=== PATIENT | male | born 1995 | race Caucasian/White ===

== ENCOUNTER 2022-04-07 03:42 | Inpatient (IN) | payer MEDICAID, OTHER ==
[~2022-04-07] VITALS: Ht 185.4 cm; Wt 59.0 kg
[~2022-04-07 03:42] MED LIST: FLUO20CA30 PO
[2022-04-07 04:42] LABS: BASOPHILS % (AUTO) 0.7 % (0.0-2.0); EOSINOPHILS % (AUTO) 0.4 % (1.0-6.0); HEMATOCRIT 48.7 % (41-53); HEMOGLOBIN 16.7 g/dL (13.5-17.5); LYMPHOCYTES # (AUTO) 2.5 K/uL (1.0-4.8); LYMPHOCYTES % (AUTO) 28.2 % (22.0-44.0); MEAN CORPUSCULAR HEMOGLOBIN 31.9 pg (26.0-34.0); MEAN CORPUSCULAR HGB CONC 34.3 G/dL (31.0-37.0); MEAN CORPUSCULAR VOLUME 93 fL (80-100); MONOCYTES # (AUTO) 0.5 K/uL (0.1-1.0); MONOCYTES % (AUTO) 5.9 % (2.0-9.0); NEUTROPHILS # (AUTO) 5.7 K/uL (1.8-7.7); NEUTROPHILS % (AUTO) 64.8 % (40.0-70.0); PLATELET COUNT (AUTO) 291 K/uL (150-450); RED BLOOD CELL COUNT(AUTO) 5.24 MIL/uL (4.50-5.90); RED CELL DISTRIBUTION WIDTH 13.3 % (11.5-14.5)
[2022-04-07 04:48] LABS: ANION GAP 11 mmol/L (8-16); CALCIUM, TOTAL 9.7 mg/dL (8.8-10.5); CARBON DIOXIDE 28 mmol/L (22-29); CHLORIDE 100 mmol/L (98-107); CREATININE 1.26 mg/dL (0.60-1.30); GLUCOSE,RANDOM 91 mg/dL (70-110); POTASSIUM 3.7 mmol/L (3.5-5.1); SODIUM SERUM 139 mmol/L (136-145); UREA NITROGEN, BLOOD 13 mg/dL (7-18)
[2022-04-07 04:53] LABS: ALANINE AMINOTRANSFERASE 13 U/L (12-78); ALBUMIN 5.5 g/dL (3.4-5.0); ALKALINE PHOSPHATASE 39 U/L (46-116); ASPARTATE AMINOTRANSFERASE 17 U/L (15-37); BILIRUBIN,TOTAL 0.6 mg/dL (0.1-1.0); TOTAL PROTEIN, SERUM 9.4 g/dL (6.4-8.2)
[2022-04-07 04:57] LABS: GLOMERULAR FILTR. RATE CALC > 60 mL/min (>60)
[2022-04-07 05:30] LABS: COVID AG,FIA SOURCE NASAL SWAB
[2022-04-07] MEDS ORDERED: MELATONIN 5 MG TABLET PO ONE (06:00)
[2022-04-07] MEDS: HALOPERIDOL 5 MG TABLET PO PRN (06:06)
[2022-04-07] MEDS: LORazepam 2 MG TABLET PO PRN (06:06)
[2022-04-07 06:14] LABS: APPEARANCE,URINE TURBID (CLEAR); BILIRUBIN,URINE NEGATIVE (NEGATIVE); GLUCOSE, URINE (UA) NEGATIVE (NEGATIVE); KETONES,URINE 40-60 mg/dL (NEGATIVE); LEUKOCYTE ESTERASE ,URINE NEGATIVE (NEGATIVE); NITRATE,URINE NEGATIVE (NEGATIVE); OCCULT BLOOD,URINE NEGATIVE (NEGATIVE); PH,URINE 6.5 (5.0-8.0); PROTEIN,URINE 30-70 mg/dL (NEGATIVE); SPECIFIC GRAVITIY, URINE 1.029 (1.003-1.030); UROBILINOGEN,URINE <=1.0 mg/dL (<=1.0)
[2022-04-07 06:20] LABS: AMPHET/METH SCREEN,URINE NEGATIVE (NEGATIVE); BARBITURATE SCREEN, URINE NEGATIVE (NEGATIVE); BENZODIAZEPINES SCREEN,URINE NEGATIVE (NEGATIVE); CANNABINOID SCREEN,URINE POSITIVE (NEGATIVE); COCAINE SCREEN,URINE NEGATIVE (NEGATIVE); METHADONE SCREEN, URINE NEGATIVE (NEGATIVE); OPIATE SCREEN,URINE NEGATIVE (NEGATIVE)
[2022-04-07 06:25] LABS: PHENCYCLIDINE SCREEN,URINE NEGATIVE (NEGATIVE)
[2022-04-07 08:32] VITALS: BP 117/67
[2022-04-07] MEDS ORDERED: INFLUENZA VIRUS VACCINE QVS 2022-23 (6MO+)/PF 60 MCG/0.5 ML SYRINGE IM. ONE (12:00)
[2022-04-07] MEDS: NICOTINE 21 MG/24 HOUR PATCH TD SCH (12:41)
[2022-04-07] MEDS ORDERED: ACETAMINOPHEN 325 MG TABLET PO PRN (20:30)
[2022-04-07] MEDS ORDERED: BENZOCAINE/MENTHOL LOZENGE PO PRN (20:30)
[2022-04-07] MEDS ORDERED: CloNIDine HCL 0.1 MG TABLET PO PRN (20:30)
[2022-04-07] MEDS: ZOLPIDEM TARTRATE 10 MG TABLET PO PRN (20:30)
[2022-04-07] MEDS ORDERED: BACITRACIN 28 GM OINTMENT TP PRN (20:30)
[2022-04-07] MEDS ORDERED: MAG HYDROX/AL HYDROX/SIMETH ES 30 ML SUSPENSION UDCUP PO PRN (20:30)
[2022-04-07] MEDS ORDERED: OMEPRAZOLE 20 MG CAPSULE PO PRN (20:30)
[2022-04-07] MEDS ORDERED: IBUPROFEN 600 MG TABLET PO PRN (20:30)
[2022-04-07] MEDS ORDERED: DOCUSATE SODIUM 100 MG CAPSULE PO PRN (20:30)
[2022-04-07] MEDS ORDERED: ALBUTEROL SULFATE HFA 90 MCG/PUFF 8 GM INHALER IH PRN (20:30)
[2022-04-07] MEDS ORDERED: LOPERAMIDE HCL 2 MG CAPSULE PO PRN (20:30)
[2022-04-07] MEDS ORDERED: ONDANSETRON HCL 4 MG TABLET PO PRN (20:30)
[2022-04-07] MEDS ORDERED: PETROLATUM,WHITE 28 GM JELLY TP PRN (20:30)
[2022-04-07] MEDS ORDERED: MAGNESIUM HYDROXIDE SUSPENSION 30 ML UDCUP PO PRN (20:30)
[2022-04-07 20:45] VITALS: BP 119/69
[2022-04-08] MEDS: HALOPERIDOL 5 MG TABLET PO PRN (03:57)
[2022-04-08] MEDS: LORazepam 2 MG TABLET PO PRN ×2 (03:57→11:14)
[2022-04-08 08:19] VITALS: BP 112/60
[2022-04-08] MEDS: NICOTINE 21 MG/24 HOUR PATCH TD SCH (09:06)
[2022-04-08] MEDS: MULTIVITAMINS WITH MINERALS, THERAPEUTIC TABLET PO SCH (17:12)
[2022-04-08] MEDS: FOLIC ACID 1 MG TABLET PO SCH (17:13)
[2022-04-08] MEDS: THIAMINE 100 MG TABLET PO SCH (17:13)
[2022-04-08 20:01] VITALS: BP 104/60
[2022-04-08] MEDS: OLANZapine 5 MG TABLET PO SCH (20:04)
[2022-04-08] MEDS: ZOLPIDEM TARTRATE 10 MG TABLET PO PRN (20:04)
[2022-04-09] MEDS: LORazepam 2 MG TABLET PO PRN (03:58)
[2022-04-09 08:11] LABS: MAGNESIUM 2.1 mg/dL (1.80-2.40); PHOSPHORUS 4.5 mg/dL (2.5-4.9)
[2022-04-09 08:23] VITALS: BP 106/61
[2022-04-09] MEDS: MULTIVITAMINS WITH MINERALS, THERAPEUTIC TABLET PO SCH (09:21)
[2022-04-09] MEDS: THIAMINE 100 MG TABLET PO SCH (09:21)
[2022-04-09] MEDS: FOLIC ACID 1 MG TABLET PO SCH (09:21)
[2022-04-09] MEDS: NICOTINE 21 MG/24 HOUR PATCH TD SCH (09:21)
[2022-04-09] MEDS: OLANZapine 5 MG TABLET PO SCH (20:24)
[2022-04-09] MEDS: ZOLPIDEM TARTRATE 10 MG TABLET PO PRN (20:24)
[2022-04-09 21:28] VITALS: BP 110/68
[2022-04-10 02:27] VITALS: BP 106/72
[2022-04-10] MEDS: LORazepam 2 MG TABLET PO PRN (02:32)
[2022-04-10] MEDS: THIAMINE 100 MG TABLET PO SCH (08:57)
[2022-04-10] MEDS: MULTIVITAMINS WITH MINERALS, THERAPEUTIC TABLET PO SCH (08:57)
[2022-04-10] MEDS: FOLIC ACID 1 MG TABLET PO SCH (08:58)
[2022-04-10] MEDS: NICOTINE 21 MG/24 HOUR PATCH TD SCH (08:58)
[2022-04-10 09:11] VITALS: BP 93/55
[2022-04-10] MEDS ORDERED: OLAN5TAB52 PO (11:11)
[2022-04-11 19:06] LABS: HEPATITIS C AB (EIA) <0.1 s/co ratio (0.0-0.9)
== END 2022-04-10 14:53 | disposition home or self-care (01) | DRG 750 ==
LOC: EMS 03:43 → B2S 05:00
PROVIDERS: ADMIT Psychiatry & Neurology Psychiatry; ATTEND Psychiatry & Neurology Psychiatry
DX: F25.9 Schizoaffective disorder, unspecified (principal); R45.851 Suicidal ideations; F41.9 Anxiety disorder, unspecified; F31.9 Bipolar disorder, unspecified; G47.00 Insomnia, unspecified; K59.00 Constipation, unspecified; F17.210 Nicotine dependence, cigarettes, uncomplicated; Z91.51 Personal history of suicidal behavior; Z79.899 Other long term (current) drug therapy; Z88.8 Allergy status to other drugs, medicaments and biological substances
CPT/HCPCS: 80053; 80307; 81003; 83735; 84100; 85025; 86803; 87340; 90686; 99285; G0480

== ENCOUNTER 2023-01-06 02:39 | Inpatient (IN) | payer MEDICAID ==
[~2023-01-06] VITALS: Ht 185.4 cm; Wt 69.4 kg
[~2023-01-06 02:39] MED LIST changes: -FLUO20CA30 PO; +OLAN5TAB52 PO
[2023-01-06 03:08] LABS: BASOPHILS % (AUTO) 0.3 % (0.0-2.0); EOSINOPHILS % (AUTO) 0.2 % (1.0-6.0); HEMATOCRIT 43.8 % (41-53); HEMOGLOBIN 14.9 g/dL (13.5-17.5); LYMPHOCYTES # (AUTO) 1.7 K/uL (1.0-4.8); LYMPHOCYTES % (AUTO) 13.8 % (22.0-44.0); MEAN CORPUSCULAR HEMOGLOBIN 31.4 pg (26.0-34.0); MEAN CORPUSCULAR HGB CONC 34.1 G/dL (31.0-37.0); MEAN CORPUSCULAR VOLUME 92 fL (80-100); MONOCYTES # (AUTO) 0.6 K/uL (0.1-1.0); MONOCYTES % (AUTO) 5.2 % (2.0-9.0); NEUTROPHILS # (AUTO) 9.7 K/uL (1.8-7.7); NEUTROPHILS % (AUTO) 80.5 % (40.0-70.0); PLATELET COUNT (AUTO) 278 K/uL (150-450); RED BLOOD CELL COUNT(AUTO) 4.75 MIL/uL (4.50-5.90); RED CELL DISTRIBUTION WIDTH 12.8 % (11.5-14.5); WHITE BLOOD COUNT (AUTO) 12.1 K/uL (4.5-11.0)
[2023-01-06 03:14] LABS: ALCOHOL, URINE DRUG SCREEN NEGATIVE (NEGATIVE); AMPHET/METH SCREEN,URINE NEGATIVE (NEGATIVE); BARBITURATE SCREEN, URINE NEGATIVE (NEGATIVE); BENZODIAZEPINES SCREEN,URINE NEGATIVE (NEGATIVE); CANNABINOID SCREEN,URINE POSITIVE (NEGATIVE); COCAINE SCREEN,URINE NEGATIVE (NEGATIVE); METHADONE SCREEN, URINE NEGATIVE (NEGATIVE); OPIATE SCREEN,URINE NEGATIVE (NEGATIVE); PHENCYCLIDINE SCREEN,URINE NEGATIVE (NEGATIVE)
[2023-01-06 03:20] LABS: ANION GAP 9 mmol/L (8-16); CALCIUM, TOTAL 8.7 mg/dL (8.8-10.5); CARBON DIOXIDE 27 mmol/L (22-29); CHLORIDE 102 mmol/L (98-107); CREATININE 1.21 mg/dL (0.60-1.30); GLOMERULAR FILTR. RATE CALC > 60 mL/min (>60); GLUCOSE,RANDOM 101 mg/dL (70-110); POTASSIUM 3.8 mmol/L (3.5-5.1); SODIUM SERUM 138 mmol/L (136-145); UREA NITROGEN, BLOOD 13 mg/dL (7-18)
[2023-01-06 03:26] LABS: ALANINE AMINOTRANSFERASE 20 U/L (12-78); ALBUMIN 4.5 g/dL (3.4-5.0); ALCOHOL, BLOOD (SERUM) < 3 mg/dL (0-10); ALKALINE PHOSPHATASE 33 U/L (46-116); ASPARTATE AMINOTRANSFERASE 16 U/L (15-37); BILIRUBIN,TOTAL 0.5 mg/dL (0.1-1.0); TOTAL PROTEIN, SERUM 8.1 g/dL (6.4-8.2)
[2023-01-06 03:57] LABS: COVID AG,FIA SOURCE NASAL SWAB
[2023-01-06 04:16] LABS: SARS-COV2 (COVID) ANTIGEN,FIA Negative (Negative)
[2023-01-06] MEDS ORDERED: LORazepam 2 MG TABLET PO ONE (04:30)
[2023-01-06] MEDS ORDERED: BACITRACIN 0.9 GM PACKET OINTMENT TP ONE (04:40)
[2023-01-06] MEDS ORDERED: HALOPERIDOL 5 MG TABLET PO PRN (07:45)
[2023-01-06] MEDS ORDERED: ZOLPIDEM TARTRATE 10 MG TABLET PO PRN (07:45)
[2023-01-06 12:15] VITALS: BP 104/54; PULSE 92; RESP 18; TEMP 97.6; O2SAT 97
[2023-01-06] MEDS ORDERED: INFLUENZA VIRUS VACCINE QVS 2023-24 (6MO+)/PF 60 MCG/0.5 ML SYRINGE IM. ONE (12:15)
[2023-01-06] MEDS ORDERED: TRAZ-283 PO (12:52)
[2023-01-06] MEDS ORDERED: LURA40TA4 PO (12:52)
[2023-01-06] MEDS: LURASIDONE HCL 40 MG TABLET PO SCH (17:00)
[2023-01-06 20:29] VITALS: BP 117/64; PULSE 100; RESP 18; TEMP 97.5; O2SAT 98
[2023-01-06] MEDS: TraZODone HCL 150 MG TABLET PO SCH (21:35)
[2023-01-06] MEDS: LORazepam 2 MG TABLET PO PRN (21:37)
[2023-01-07 08:19] VITALS: BP 100/60; PULSE 75; RESP 18; TEMP 98; O2SAT 99
[2023-01-07] MEDS ORDERED: LOPERAMIDE HCL 2 MG CAPSULE PO PRN (14:30)
[2023-01-07] MEDS ORDERED: MAG HYDROX/ALUMINUM HYD/SIMETH ES 30 ML SUSPENSION UDCUP PO PRN (14:30)
[2023-01-07] MEDS ORDERED: MAGNESIUM HYDROXIDE SUSPENSION 30 ML UDCUP PO PRN (14:30)
[2023-01-07] MEDS ORDERED: CloNIDine HCL 0.1 MG TABLET PO PRN (14:30)
[2023-01-07] MEDS ORDERED: IBUPROFEN 400 MG TABLET PO PRN (14:30)
[2023-01-07] MEDS ORDERED: GuaiFENesin/D-METHORPHAN [SUGAR-FREE] 200-20MG/10 ML SYRUP UDCUP PO PRN (14:30)
[2023-01-07] MEDS ORDERED: ACETAMINOPHEN 325 MG TABLET PO PRN (14:30)
[2023-01-07] MEDS ORDERED: PETROLATUM,WHITE 28 GM JELLY TP PRN (14:30)
[2023-01-07] MEDS ORDERED: ALBUTEROL SULFATE HFA 90 MCG/PUFF 8 GM INHALER IH PRN (14:30)
[2023-01-07] MEDS ORDERED: NICOTINE 14 MG/24 HOUR PATCH TD PRN (14:30)
[2023-01-07] MEDS ORDERED: DOCUSATE SODIUM 100 MG CAPSULE PO PRN (14:30)
[2023-01-07] MEDS ORDERED: ONDANSETRON HCL 4 MG TABLET PO PRN (14:30)
[2023-01-07] MEDS: LURASIDONE HCL 40 MG TABLET PO SCH (16:05)
[2023-01-07] MEDS: TraZODone HCL 150 MG TABLET PO SCH (20:31)
[2023-01-07 20:34] VITALS: BP 123/88; PULSE 100; RESP 17; TEMP 97.6; O2SAT 99
[2023-01-08 08:18] LABS: CHOL/HDL RATIO 2.3 (4.2-7.3); THYROID STIMULATING HORMONE 1.37 uIU/mL (0.36-3.74)
[2023-01-08 08:19] VITALS: BP 100/60; PULSE 86; RESP 17; TEMP 97; O2SAT 99
[2023-01-08 08:21] LABS: HEMOGLOBIN A1C 5.1 % (3.8-5.6)
[2023-01-08] MEDS: LURASIDONE HCL 40 MG TABLET PO SCH (16:49)
[2023-01-08 20:10] VITALS: BP 106/70; PULSE 88; RESP 18; TEMP 97.6; O2SAT 96
[2023-01-08] MEDS: TraZODone HCL 150 MG TABLET PO SCH (20:35)
[2023-01-09] MEDS: LORazepam 2 MG TABLET PO PRN (03:58)
[2023-01-09 08:45] VITALS: BP 100/61; PULSE 100; RESP 18; TEMP 97.6; O2SAT 99
[2023-01-09 09:30] LABS: APPEARANCE,URINE CLEAR (CLEAR); BILIRUBIN,URINE NEGATIVE (NEGATIVE); COLOR,URINE YELLOW (YELLOW); GLUCOSE, URINE (UA) NEGATIVE (NEGATIVE); KETONES,URINE NEGATIVE (NEGATIVE); LEUKOCYTE ESTERASE ,URINE NEGATIVE (NEGATIVE); NITRATE,URINE NEGATIVE (NEGATIVE); OCCULT BLOOD,URINE NEGATIVE (NEGATIVE); PH,URINE 6.5 (5.0-8.0); PH,URINE DRUG SCREEN 6.5 (5.0-8.0); PROTEIN,URINE TRACE mg/dL (NEGATIVE); SPECIFIC GRAVITIY, URINE 1.027 (1.003-1.030)
[2023-01-09 09:36] LABS: ALCOHOL, URINE DRUG SCREEN NEGATIVE (NEGATIVE); AMPHET/METH SCREEN,URINE NEGATIVE (NEGATIVE); BARBITURATE SCREEN, URINE NEGATIVE (NEGATIVE); BENZODIAZEPINES SCREEN,URINE NEGATIVE (NEGATIVE); CANNABINOID SCREEN,URINE NEGATIVE (NEGATIVE); COCAINE SCREEN,URINE NEGATIVE (NEGATIVE); METHADONE SCREEN, URINE NEGATIVE (NEGATIVE); OPIATE SCREEN,URINE NEGATIVE (NEGATIVE); PHENCYCLIDINE SCREEN,URINE NEGATIVE (NEGATIVE)
[2023-01-09] MEDS: LURASIDONE HCL 40 MG TABLET PO SCH (16:30)
[2023-01-09 20:13] VITALS: BP 105/65; PULSE 90; RESP 18; TEMP 98.8; O2SAT 98
[2023-01-10 03:07] LABS: HEPATITIS C AB (EIA) Non Reactive (Non Reactive)
[2023-01-10] MEDS ORDERED: LURA40TA2 PO (09:09)
[2023-01-10] MEDS ORDERED: TRAZ150T80 PO (09:09)
== END 2023-01-09 17:56 | disposition home or self-care (01) | DRG 753 ==
LOC: EMS 02:40 → B2S 07:50
PROVIDERS: ADMIT Psychiatry & Neurology Psychiatry; ATTEND Psychiatry & Neurology Psychiatry
DX: F31.4 Bipolar disorder, current episode depressed, severe, without psychotic features (principal); R45.851 Suicidal ideations; F41.9 Anxiety disorder, unspecified; D72.829 Elevated white blood cell count, unspecified; F12.90 Cannabis use, unspecified, uncomplicated; Z20.822 Contact with and (suspected) exposure to COVID-19; G47.00 Insomnia, unspecified; Z79.899 Other long term (current) drug therapy; Z88.0 Allergy status to penicillin
CPT/HCPCS: 80053; 80061; 80307; 81003; 83036; 84443; 85025; 86803; 87340; G0480